=== PATIENT | female | born 2000 | race Two or more races ===

== ENCOUNTER 2024-06-13 17:41 | Emergency (ER) | payer SELFPAY ==
[~2024-06-13] VITALS: Ht 162.6 cm; Wt 49.4 kg
[2024-06-13 17:46] VITALS: O2SAT 100
[2024-06-13] MEDS: METOCLOPRAMIDE HCL 10MG TABLET PO ONE (18:59)
[2024-06-13] MEDS: DIPHENHYDRAMINE 25MG CAPSULE PO ONE (18:59)
[2024-06-13 19:59] LABS: BASOPHILS % 0.6 % (0.0-2.0); EOSINOPHILS % 0.8 % (0.0-5.0); HEMATOCRIT. 41.5 % (36.0-48.0); HEMOGLOBIN. 13.6 g/dL (12.0-16.0); LYMPHOCYTES % 25.1 % (20.0-50.0); MEAN CORPUSCULAR HEMOGLOBIN 27.3 pg (28.0-32.0); MEAN CORPUSCULAR HGB CONC 32.7 g/dL (31.0-37.0); MEAN CORPUSCULAR VOLUME 83.7 fL (81.0-99.0); MEAN PLATELET VOLUME 9.6 fl (7.4-10.4); MONOCYTES % 6.4 % (2.0-8.0); NEUTROPHILS % 67.1 % (40.0-76.0); PLATELET 250 x1000/uL (130-400); RED BLOOD CELL COUNT 4.96 mill/uL (4.2-5.4); RED CELL DISTRIBUTION WIDTH 14.2 % (11.6-14.6); WHITE BLOOD COUNT 9.5 x1000/uL (4.5-11.0)
[2024-06-13 20:03] LABS: CLARITY URINE CLEAR (CLEAR); COLOR URINE YELLOW (YELLOW); GLUCOSE URINE NEGATIVE (NEGATIVE); KETONES URINE NEGATIVE (NEGATIVE); LEUKOCYTE ESTERASE URINE NEGATIVE (NEGATIVE); NITRITE URINE NEGATIVE (NEGATIVE); OCCULT BLOOD URINE NEGATIVE (NEGATIVE); PROTEIN URINE NEGATIVE (NEGATIVE); SPECIFIC GRAVITY URINE 1.003 (1.005-1.030); UROBILINOGEN URINE 0.2 E.U./dL (0.2-1.0)
[2024-06-13] MEDS: KETOROLAC 30MG/ML VIAL IM ONE (20:03)
[2024-06-13 20:04] LABS: CHLORIDE 103 mEq/L (98-107); SODIUM 137 mEq/L (136-145)
[2024-06-13 20:05] LABS: CARBON DIOXIDE 29 mEq/L (21-32)
[2024-06-13 20:06] LABS: CALCIUM 10.2 mg/dL (8.7-10.4)
[2024-06-13 20:08] LABS: HCG SCREEN NEGATIVE
[2024-06-13 20:10] LABS: CREATININE 0.8 mg/dL (0.6-1.0); GLUCOSE 82 mg/dL (70-105); UREA NITROGEN BLOOD 12 mg/dL (9-23)
[2024-06-13] MEDS ORDERED: IBUP-2029 MT (20:13)
[2024-06-13] MEDS ORDERED: METO-293 MT (20:13)
[2024-06-13 20:30] VITALS: BP 99/64; PULSE 70; RESP 18; TEMP 36.66960; O2SAT 100
== END 2024-06-13 20:35 | disposition home or self-care (01) ==
LOC: ER 17:41
DX: G44.209 Tension-type headache, unspecified, not intractable (principal); K52.9 Noninfective gastroenteritis and colitis, unspecified
CPT/HCPCS: 99283; 80048; 81003; 84703; 85025; 36415; 96372; Q0163; J8597; J1885